=== PATIENT | female | born 2000 | race Caucasian/White ===

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

== ENCOUNTER 2018-02-03 20:46 | Emergency (ER) | payer OTHER, SELFPAY ==
[2018-02-03 20:48] VITALS: BP 122/73; PULSE 144; RESP 20; TEMP 37.9; O2SAT 98; BMI 20.8
[2018-02-03] MEDS: 0.9% Normal Saline 1,000 ML 1000 ML IV ×2 (22:04→23:50)
[2018-02-03] MEDS: Ketorolac 15 MG/ML Vial IV (22:04)
[2018-02-03 22:18] LABS: Absolute Lymphocyte Count 0.81 X10^3/ul (0.83-4.51); Absolute Neutrophil Count 7.1 X10^3/uL (2.0-7.7); Basophil# 0.02 X10^3/uL; Basophil% 0.2 % (0-1); Hematocrit 41.6 % (37-47); Hemoglobin 13.3 g/dl (12.0-15.0); Lymphocyte # 0.81 X10^3/ul (4.0); Lymphocyte % 9.1 % (19-41); Mean Corpuscular Hgb 29.1 pg (27.0-32.0); Mean Platelet Vol. 10.2 fl (6.2-12.0); Monocyte# 1.01 X10^3/uL; Monocyte% 11.3 % (0-10); Neutrophil # 7.06 X10^3/uL (2.7-7.7); Neutrophil % 79.3 % (47-70); Platelet Count 170 K/mm3 (150-450); RBC Distribution Width CV 12.5 % (11.6-14.6); RBC Distribution Width SD 41.5 fl (35.1-43.9); Red Blood Count 4.57 M/mm3 (4.2-5.4); White Blood Count 8.9 K/mm3 (4.4-11.0)
[2018-02-03 22:20] LABS: POSITIVE COUNT NO; POSITIVE DIFFERENTIAL NO; POSITIVE MORPHOLOGY NO
[2018-02-03 22:54] VITALS: BP 99/61; PULSE 108; RESP 18; O2SAT 99
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
[2018-02-04 00:41] VITALS: BP 99/56; PULSE 96; RESP 16; O2SAT 96
== END 2018-02-04 00:41 | disposition home or self-care (01) ==
PROVIDERS: Emergency Provider Emergency Medicine
DX: J03.90 Acute tonsillitis, unspecified (principal); R50.9 Fever, unspecified; E86.0 Dehydration; Z79.891 Long term (current) use of opiate analgesic; Z79.899 Other long term (current) drug therapy
CPT/HCPCS: 85025; 96361; 96374; 96375; 99283; J7030